=== PATIENT | female | born 1970 | race Caucasian/White ===

== ENCOUNTER 2023-02-19 06:54 | Outpatient (RCR) | payer OTHER, SELFPAY | END 2023-02-27 11:46 | disposition home or self-care (01) | LOC: PT 06:54 | PROVIDERS: PCP Student in an Organized Health Care Education/Training Program; Visit Provider Student in an Organized Health Care Education/Training Program | DX: S97.81XD Crushing injury of right foot, subsequent encounter (principal) | CPT/HCPCS: 97110 ==

== ENCOUNTER 2023-04-02 19:26 | Emergency (ER) | payer MEDICAID, SELFPAY ==
[2023-04-02 19:08] VITALS: BP 166/114; PULSE 100; RESP 22; TEMP 37.6; O2SAT 100; BMI 21.8
--- NOTE | 2023-04-02 19:31 | ECG_ITS ---
The [facility] Test Date: 2023-04-02 Pat Name: MADELYN AVILA Department: Room: - Gender: Female Manager Applied: : 1970 Requested By: [id number] Order Number: [id number] Reading MD: ROSHAN BARR Measurements Intervals [place] Rate: 76 P: -44 TX: 140 QRS: 67 QRSD: 86 T: 39 QT: 370 QTc: 400 Interpretive Statements 1220 Rapid atrial rhythm, consider junctional 2420 RSR (QR) in lead V1/V2, consistent with right ventricular conduction delay 9140 abnormal rhythm ECG No previous ECG available for comparison Electronically Signed On 04-03-2023 7:16:09 EDT by ROSHAN BARR
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
[2023-04-02 20:23] LABS: Basophils Percent Auto 0.3 % (0.2-2.0); Eosinophils Absolute Auto 0.1 10^3/uL (0.0-0.7); Eosinophils Percent Auto 1.1 % (0.9-7.0); Hematocrit 37.7 % (36.0-48.0); Hemoglobin 12.3 g/dL (12.0-16.0); Immature Granulocytes Abs Auto 0.05 10^3/uL (0.00-0.03); Immature Granulocytes Pct Auto 0.6 % (0.0-0.5); Lymphocytes Absolute Auto 1.3 10^3/uL (1.2-3.8); Lymphocytes Percent Auto 16.3 % (20.5-60.0); Mean Corpuscular HGB Conc 32.6 g/dL (29.9-35.2); Mean Corpuscular Hemoglobin 28.4 pg (26.7-34.0); Mean Corpuscular Volume 87.1 fL (81.0-99.0); Mean Platelet Volume 9.8 fL (9.5-13.5); Monocytes Absolute Auto 0.6 10^3/uL (0.3-0.8); Monocytes Percent Auto 7.2 % (1.7-12.0); Neutrophils Absolute Auto 5.9 10^3/uL (1.4-6.5); Neutrophils Percent Auto 74.5 % (43.0-75.0); Platelet Count 233 10^3/uL (150-450); Red Blood Count 4.33 10^6/uL (4.20-5.40); Red Cell Distribution Width 12.7 % (11.0-15.0); White Blood Count 7.9 10^3/uL (4.0-11.0)
[2023-04-02 20:39] LABS: Anion Gap 11.6; BUN Creatinine Ratio 13.2; Calcium 9.1 mg/dL (8.5-10.1); Carbon Dioxide 26.2 mmol/L (21.0-32.0); Chloride 103 mmol/L (98-107); Estimated GFR (African America >60 (>=60); Estimated GFR (Non-African Ame >60 (>=60); Glucose 104 mg/dL (74-106); Potassium 3.8 mmol/L (3.5-5.1); Sodium 137 mmol/L (136-145); Troponin I High Sensitivity 10.2 pg/mL (4.0-51.3)
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
[2023-04-02 21:21] VITALS: O2SAT 98
[2023-04-02 21:23] VITALS: PULSE 78
[2023-04-02] MEDS: HYDROCODONE/ACETAMINOPHEN 5-325 MG TABLET 2 TAB PO (21:47)
[2023-04-02 22:28] VITALS: BP 112/89; PULSE 73; RESP 16; O2SAT 99
== END 2023-04-02 22:31 | disposition home or self-care (01) ==
PROVIDERS: Emergency Provider Internal Medicine
DX: T71.193A Asphyxiation due to mechanical threat to breathing due to other causes, assault, initial encounter (principal)
CPT/HCPCS: 36415; 70450; 70498; 80048; 84484; 85025; 93005; 99285; Q9967

== ENCOUNTER 2023-04-08 13:06 | Outpatient (OUT) | payer OTHER, SELFPAY ==
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
== END 2023-04-08 13:07 | disposition home or self-care (01) ==
LOC: RAD 13:08
PROVIDERS: Visit Provider Podiatrist Foot & Ankle Surgery
DX: S97.81XD Crushing injury of right foot, subsequent encounter (principal)
CPT/HCPCS: 73630

== ENCOUNTER 2023-04-15 08:40 | Outpatient (OUT) | payer OTHER, MEDICAID, SELFPAY ==
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
== END 2023-04-15 08:41 | disposition home or self-care (01) ==
LOC: CT 08:40
PROVIDERS: Visit Provider Podiatrist Foot & Ankle Surgery
DX: S92.254A Nondisplaced fracture of navicular [scaphoid] of right foot, initial encounter for closed fracture (principal); S92.324A Nondisplaced fracture of second metatarsal bone, right foot, initial encounter for closed fracture; S92.334A Nondisplaced fracture of third metatarsal bone, right foot, initial encounter for closed fracture; S97.81XA Crushing injury of right foot, initial encounter; X58.XXXA Exposure to other specified factors, initial encounter
CPT/HCPCS: 73700

== ENCOUNTER 2024-01-05 13:03 | Outpatient (OUT) | payer OTHER, SELFPAY ==
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
== END 2024-01-05 13:04 | disposition home or self-care (01) ==
PROVIDERS: Visit Provider Podiatrist Foot & Ankle Surgery
DX: S97.81XD Crushing injury of right foot, subsequent encounter (principal)
CPT/HCPCS: 73630